=== PATIENT | male | born 1955 | race Caucasian/White ===

== ENCOUNTER → 2019-12-04 11:56 | Outpatient (BNVA) | payer MEDICARE, SELFPAY | PROVIDERS: Family Provider Nurse Practitioner; PCP Nurse Practitioner; Visit Provider Nurse Practitioner | DX: I12.9 Hypertensive chronic kidney disease with stage 1 through stage 4 chronic kidney disease, or unspecified chronic kidney disease (principal); E11.22 Type 2 diabetes mellitus with diabetic chronic kidney disease; N18.3 Chronic kidney disease, stage 3 (moderate); E55.9 Vitamin D deficiency, unspecified | CPT/HCPCS: 80053; 83036 ==

== ENCOUNTER → 2020-02-21 09:27 | Outpatient (BNVA) | payer MEDICARE, SELFPAY | PROVIDERS: Family Provider Nurse Practitioner; PCP Nurse Practitioner; Visit Provider Internal Medicine Nephrology | DX: N18.4 Chronic kidney disease, stage 4 (severe) (principal) | CPT/HCPCS: 80069; 82570; 84156; 85025 ==

== ENCOUNTER → 2020-05-16 09:12 | Outpatient (BNVA) | payer MEDICARE, OTHER, SELFPAY | PROVIDERS: Family Provider Nurse Practitioner; PCP Nurse Practitioner; Visit Provider Internal Medicine Nephrology | DX: E11.22 Type 2 diabetes mellitus with diabetic chronic kidney disease (principal); I12.9 Hypertensive chronic kidney disease with stage 1 through stage 4 chronic kidney disease, or unspecified chronic kidney disease; N18.4 Chronic kidney disease, stage 4 (severe); E55.9 Vitamin D deficiency, unspecified | CPT/HCPCS: 80053; 80069; 82044; 82310; 83036; 83970 ==

== ENCOUNTER → 2020-08-16 08:31 | Outpatient (BNVA) | payer MEDICARE, OTHER, SELFPAY | PROVIDERS: Family Provider Nurse Practitioner; PCP Nurse Practitioner; Visit Provider Internal Medicine Nephrology | DX: E11.9 Type 2 diabetes mellitus without complications (principal); I10 Essential (primary) hypertension; N18.4 Chronic kidney disease, stage 4 (severe); E55.9 Vitamin D deficiency, unspecified | CPT/HCPCS: 80069; 82043; 82306; 82310; 83036; 83970 ==

== ENCOUNTER → 2020-11-27 08:49 | Outpatient (BNVA) | payer MEDICARE, OTHER, SELFPAY | PROVIDERS: Family Provider Nurse Practitioner; PCP Nurse Practitioner; Visit Provider Internal Medicine Nephrology | DX: N18.4 Chronic kidney disease, stage 4 (severe) (principal); E11.22 Type 2 diabetes mellitus with diabetic chronic kidney disease; I10 Essential (primary) hypertension | CPT/HCPCS: 80048; 80069; 82043; 82306; 82310; 82728; 83036; 83550; 83970; 85025 ==

== ENCOUNTER → 2020-12-03 14:03 | Outpatient (BNVA) | payer MEDICARE, OTHER, SELFPAY | PROVIDERS: Family Provider Nurse Practitioner; PCP Nurse Practitioner; Visit Provider Nurse Practitioner Family | DX: S91.302A Unspecified open wound, left foot, initial encounter (principal); Z89.412 Acquired absence of left great toe | CPT/HCPCS: 73630; 87070; 87075; 87205 ==

== ENCOUNTER 2020-12-09 13:11 | Outpatient (CLI) | payer MEDICARE, OTHER, SELFPAY | END 2020-12-09 13:12 | disposition home or self-care (01) | LOC: WOUND 13:14 | PROVIDERS: Family Provider Nurse Practitioner; PCP Nurse Practitioner; Visit Provider Nurse Practitioner Family | DX: E11.621 Type 2 diabetes mellitus with foot ulcer (principal); L97.522 Non-pressure chronic ulcer of other part of left foot with fat layer exposed | CPT/HCPCS: 11042; 87070; 87075; 87205; G0463; L3260 ==

== ENCOUNTER 2020-12-16 14:11 | Outpatient (CLI) | payer MEDICARE, OTHER, SELFPAY | END 2020-12-16 14:12 | disposition home or self-care (01) | LOC: WOUND 14:12 | PROVIDERS: Family Provider Nurse Practitioner; PCP Nurse Practitioner; Visit Provider Thoracic Surgery (Cardiothoracic Vascular Surgery) | DX: Z09 Encounter for follow-up examination after completed treatment for conditions other than malignant neoplasm (principal) | CPT/HCPCS: G0463 ==

== ENCOUNTER → 2021-02-17 09:39 | Outpatient (BNVA) | payer MEDICARE, OTHER, SELFPAY | PROVIDERS: Family Provider Nurse Practitioner; PCP Nurse Practitioner; Visit Provider Nurse Practitioner | DX: E11.22 Type 2 diabetes mellitus with diabetic chronic kidney disease (principal); I10 Essential (primary) hypertension | CPT/HCPCS: 80053; 83036 ==

== ENCOUNTER → 2021-04-22 09:27 | Outpatient (BNVA) | payer MEDICARE, OTHER, SELFPAY | PROVIDERS: Family Provider Nurse Practitioner; PCP Nurse Practitioner; Visit Provider Internal Medicine Nephrology | DX: E11.22 Type 2 diabetes mellitus with diabetic chronic kidney disease (principal); N18.4 Chronic kidney disease, stage 4 (severe); E55.9 Vitamin D deficiency, unspecified | CPT/HCPCS: 80069; 82306; 82310; 83036; 83970; 85025 ==

== ENCOUNTER → 2021-06-05 09:11 | Outpatient (BNVA) | payer MEDICARE, OTHER, SELFPAY | PROVIDERS: Family Provider Nurse Practitioner; PCP Nurse Practitioner; Visit Provider Internal Medicine Nephrology | DX: E11.22 Type 2 diabetes mellitus with diabetic chronic kidney disease (principal); N18.4 Chronic kidney disease, stage 4 (severe); N18.30 Chronic kidney disease, stage 3 unspecified | CPT/HCPCS: 80061; 80069; 82043; 83036 ==

== ENCOUNTER → 2021-10-23 09:06 | Outpatient (BNVA) | payer MEDICARE, OTHER, SELFPAY | PROVIDERS: Family Provider Nurse Practitioner; PCP Nurse Practitioner; Visit Provider Internal Medicine Nephrology | DX: E11.22 Type 2 diabetes mellitus with diabetic chronic kidney disease (principal); I12.9 Hypertensive chronic kidney disease with stage 1 through stage 4 chronic kidney disease, or unspecified chronic kidney disease; N18.4 Chronic kidney disease, stage 4 (severe) | CPT/HCPCS: 80061; 80069; 82043; 83036 ==

== ENCOUNTER → 2022-02-26 09:11 | Outpatient (BNVA) | payer MEDICARE, OTHER, SELFPAY | PROVIDERS: Family Provider Nurse Practitioner; PCP Nurse Practitioner; Visit Provider Internal Medicine Nephrology | DX: E11.22 Type 2 diabetes mellitus with diabetic chronic kidney disease (principal); I10 Essential (primary) hypertension; E55.9 Vitamin D deficiency, unspecified; N18.9 Chronic kidney disease, unspecified | CPT/HCPCS: 80048; 80069; 82043; 82310; 83036; 83970; 85025 ==

== ENCOUNTER → 2022-06-03 09:44 | Outpatient (BNVA) | payer MEDICARE, OTHER, SELFPAY | PROVIDERS: Family Provider Nurse Practitioner; PCP Nurse Practitioner; Visit Provider Internal Medicine Nephrology | DX: N18.4 Chronic kidney disease, stage 4 (severe) (principal); E11.22 Type 2 diabetes mellitus with diabetic chronic kidney disease | CPT/HCPCS: 80069; 82043; 82310; 83036; 83970 ==

== ENCOUNTER → 2022-11-17 11:14 | Outpatient (BNVA) | payer MEDICARE, OTHER, SELFPAY | PROVIDERS: Family Provider Nurse Practitioner; PCP Nurse Practitioner; Visit Provider Nurse Practitioner | DX: N18.4 Chronic kidney disease, stage 4 (severe) (principal); E11.22 Type 2 diabetes mellitus with diabetic chronic kidney disease | CPT/HCPCS: 80061; 80069; 82043; 82306; 82542; 83036; 85025 ==

== ENCOUNTER → 2023-02-04 09:11 | Outpatient (BNVA) | payer MEDICARE, OTHER, SELFPAY | PROVIDERS: Family Provider Nurse Practitioner; PCP Nurse Practitioner; Visit Provider Internal Medicine Nephrology | DX: E11.22 Type 2 diabetes mellitus with diabetic chronic kidney disease (principal); N18.4 Chronic kidney disease, stage 4 (severe); E11.8 Type 2 diabetes mellitus with unspecified complications; I10 Essential (primary) hypertension | CPT/HCPCS: 80053; 80061; 80069; 83036 ==

== ENCOUNTER 2023-02-26 10:52 | Outpatient (CLI) | payer MEDICARE, OTHER, SELFPAY ==
--- NOTE | 2023-02-26 11:00 | CT_ITS ---
WS: [id number] CT chest wo con [id number] HISTORY: R91.1 - Solitary pulmonary nodule TECHNIQUE: Axial imaging performed through the thorax. Coronal and sagittal reformats are submitted. All CT scans at [facility] use at least one of these dose optimization techniques: automated exposure control; mA and/or kV adjustment per patient size (includes targeted exams where dose is mat ched to clinical indication); or iterative reconstruction. CONTRAST: None DLP: 296.08 mGy.cm COMPARISON: 11/29/2018 Lungs and central airway: Very mild pulmonary hyperinflation. There are a few scattered pulmonary nod ules. Some of the nodules described on the study from 2019 are no longer apparent. No enlarging or ne w nodules. No suspicious mass or pneumonia. Pleura: Normal. No pleural effusion. Heart and pericardium: Normal size heart with no pericardial effusion. Mediastinum and tani: No mediastinum or hilar adenopathy. Vessels: Mild atherosclerosis aorta. No aneurysm. Normal size pulmonary artery. Chest wall and lower neck: No soft tissue masses. Upper abdomen: Suprarenal abdominal aortic and splenic artery calcifications. No adrenal mass. Osseous structures: No destructive process. CT/CT chest wo con [id number] IMPRESSION: 1. No suspicious or enlarging or new pulmonary nodule. 2. No adenopathy. 3. Mild atherosclerosis aorta.
== END 2023-02-26 10:53 | disposition home or self-care (01) ==
LOC: RAD 10:59
PROVIDERS: PCP Nurse Practitioner; Visit Provider Nurse Practitioner
DX: E11.22 Type 2 diabetes mellitus with diabetic chronic kidney disease (principal); N18.4 Chronic kidney disease, stage 4 (severe); R91.1 Solitary pulmonary nodule
CPT/HCPCS: 71250

== ENCOUNTER → 2023-03-29 09:11 | Outpatient (BNVA) | payer MEDICARE, OTHER, SELFPAY | PROVIDERS: PCP Nurse Practitioner; Visit Provider Internal Medicine Nephrology | DX: E55.9 Vitamin D deficiency, unspecified (principal); I10 Essential (primary) hypertension; E11.22 Type 2 diabetes mellitus with diabetic chronic kidney disease; N18.4 Chronic kidney disease, stage 4 (severe) | CPT/HCPCS: 80069; 82306; 82310; 83970; 85025 ==

== ENCOUNTER → 2023-04-02 10:54 | Outpatient (BNVA) | payer MEDICARE, OTHER, SELFPAY | PROVIDERS: PCP Nurse Practitioner; Visit Provider Otolaryngology | DX: E11.22 Type 2 diabetes mellitus with diabetic chronic kidney disease (principal); E55.9 Vitamin D deficiency, unspecified; I10 Essential (primary) hypertension; N18.4 Chronic kidney disease, stage 4 (severe) | CPT/HCPCS: 82043 ==

== ENCOUNTER → 2023-05-10 10:35 | Outpatient (BNVA) | payer MEDICARE, OTHER, SELFPAY | PROVIDERS: PCP Nurse Practitioner; Visit Provider Registered Nurse | DX: D63.1 Anemia in chronic kidney disease (principal) | CPT/HCPCS: 85025 ==

== ENCOUNTER → 2023-06-03 10:48 | Outpatient (BNVA) | payer MEDICARE, OTHER, SELFPAY | PROVIDERS: PCP Nurse Practitioner; Visit Provider Registered Nurse | DX: E11.22 Type 2 diabetes mellitus with diabetic chronic kidney disease (principal); N18.4 Chronic kidney disease, stage 4 (severe) | CPT/HCPCS: 80048 ==

== ENCOUNTER → 2023-08-02 10:40 | Outpatient (BNVA) | payer MEDICARE, OTHER, SELFPAY | PROVIDERS: PCP Nurse Practitioner; Visit Provider Nurse Practitioner | DX: I10 Essential (primary) hypertension (principal); E11.22 Type 2 diabetes mellitus with diabetic chronic kidney disease | CPT/HCPCS: 80053; 80061; 83036; 84443 ==

== ENCOUNTER → 2023-10-18 10:24 | Outpatient (BNVA) | payer MEDICARE, OTHER, SELFPAY | PROVIDERS: PCP Nurse Practitioner; Visit Provider Registered Nurse | DX: E11.22 Type 2 diabetes mellitus with diabetic chronic kidney disease (principal); N18.4 Chronic kidney disease, stage 4 (severe) | CPT/HCPCS: 80069; 82043; 82310; 83970; 85025 ==

== ENCOUNTER → 2024-03-15 09:39 | Outpatient (BNVA) | payer MEDICARE, OTHER, SELFPAY | PROVIDERS: PCP Nurse Practitioner; Visit Provider Internal Medicine Nephrology | DX: E11.22 Type 2 diabetes mellitus with diabetic chronic kidney disease (principal); D50.9 Iron deficiency anemia, unspecified; N18.4 Chronic kidney disease, stage 4 (severe) | CPT/HCPCS: 80053; 80061; 80069; 82306; 82728; 83550; 85025 ==

== ENCOUNTER → 2024-04-24 10:25 | Outpatient (BNVA) | payer MEDICARE, OTHER, SELFPAY | PROVIDERS: PCP Nurse Practitioner; Visit Provider Nurse Practitioner | DX: M79.672 Pain in left foot (principal); L03.90 Cellulitis, unspecified | CPT/HCPCS: 73630; 80048; 85025 ==

== ENCOUNTER → 2024-05-01 10:40 | Outpatient (BNVA) | payer MEDICARE, OTHER, SELFPAY | PROVIDERS: PCP Nurse Practitioner; Visit Provider Nurse Practitioner | DX: L03.90 Cellulitis, unspecified (principal); E11.8 Type 2 diabetes mellitus with unspecified complications; E11.22 Type 2 diabetes mellitus with diabetic chronic kidney disease; N18.4 Chronic kidney disease, stage 4 (severe) | CPT/HCPCS: 80048; 84550; 85025 ==

== ENCOUNTER → 2024-05-02 10:44 | Outpatient (CLI) | payer MEDICARE, OTHER, SELFPAY ==
--- NOTE | 2024-05-02 11:15 | USCV_ITS ---
Tee Carmen Age: 69 Gender: M : 1955 Exam Date: 05/02/2024 10:49 Ordering Phys: Sally Davis Technologist: USR Exam Location: [facility] [place] Indication: Risk Factors: Previous Vascular Surgery: RIGHT LEFT Waveform Velocity (cm/s) Velocity (cm/s) Waveform Iliac Prox 99.0 Triphasic Iliac Mid Triphasic 105.9 Iliac Distal 96.1 Triphasic MEDICAL LAB TECH INSTRUCTOR 124.0 Triphasic SFA Prox 107.0 Biphasic SFA Mid 141.0 Biphasic SFA Dist 127.0 Biphasic POP Triphasic 127.0 STARCHER AND TENTER RANGE FEEDER 143.0 Biphasic DPA 81.0 Biphasic LANIE 0.0 FINDINGS DP and PT non compressible Intimal thickening and minimal plaques in the femoral and iliac artery on the left side Normal/near normal Doppler flow velocities CONCLUSIONS 1. Mild diffuse plaque in the common femoral, femoral and popliteal arteries on the left side 2. Noncompressible ankle vessels suggestive of extensive arterial sclerosis with possibly no significant obstruction Dr Brianda Reyes MD FACC (Electronically Signed) Final Date: 02 May 2024 20:17 S
== END | disposition home or self-care (01) ==
LOC: RAD 10:43
PROVIDERS: PCP Nurse Practitioner; Visit Provider Nurse Practitioner
DX: E11.8 Type 2 diabetes mellitus with unspecified complications (principal); L03.90 Cellulitis, unspecified; Z89.412 Acquired absence of left great toe; E11.22 Type 2 diabetes mellitus with diabetic chronic kidney disease; N18.4 Chronic kidney disease, stage 4 (severe); I73.9 Peripheral vascular disease, unspecified
CPT/HCPCS: 93926

== ENCOUNTER → 2024-05-04 09:47 | Outpatient (BNVA) | payer MEDICARE, OTHER, SELFPAY | PROVIDERS: PCP Nurse Practitioner; Visit Provider Podiatrist Foot & Ankle Surgery | DX: I73.9 Peripheral vascular disease, unspecified; E11.621 Type 2 diabetes mellitus with foot ulcer; L97.522 Non-pressure chronic ulcer of other part of left foot with fat layer exposed; L03.90 Cellulitis, unspecified; E11.22 Type 2 diabetes mellitus with diabetic chronic kidney disease; N18.4 Chronic kidney disease, stage 4 (severe); Z89.412 Acquired absence of left great toe | CPT/HCPCS: 73630; 99203 ==

== ENCOUNTER → 2024-05-11 08:35 | Outpatient (BNVA) | payer MEDICARE, OTHER, SELFPAY | PROVIDERS: PCP Nurse Practitioner; Visit Provider Podiatrist Foot & Ankle Surgery | DX: Z51.89 Encounter for other specified aftercare (principal); L03.90 Cellulitis, unspecified; E11.22 Type 2 diabetes mellitus with diabetic chronic kidney disease; N18.4 Chronic kidney disease, stage 4 (severe); Z89.412 Acquired absence of left great toe; I73.9 Peripheral vascular disease, unspecified; E11.621 Type 2 diabetes mellitus with foot ulcer; L97.522 Non-pressure chronic ulcer of other part of left foot with fat layer exposed | CPT/HCPCS: 99213 ==

== ENCOUNTER → 2024-05-26 13:45 | Outpatient (BNVA) | payer MEDICARE, OTHER, SELFPAY | PROVIDERS: PCP Nurse Practitioner; Visit Provider Podiatrist Foot & Ankle Surgery | DX: Z51.89 Encounter for other specified aftercare (principal); L03.90 Cellulitis, unspecified; E11.22 Type 2 diabetes mellitus with diabetic chronic kidney disease; N18.4 Chronic kidney disease, stage 4 (severe); Z89.412 Acquired absence of left great toe; I73.9 Peripheral vascular disease, unspecified; L97.522 Non-pressure chronic ulcer of other part of left foot with fat layer exposed; E11.621 Type 2 diabetes mellitus with foot ulcer | CPT/HCPCS: 99213 ==

== ENCOUNTER → 2024-06-05 13:51 | Outpatient (BNVA) | payer MEDICARE, OTHER, SELFPAY | PROVIDERS: PCP Nurse Practitioner; Visit Provider Podiatrist Foot & Ankle Surgery | DX: Z51.89 Encounter for other specified aftercare (principal); E11.22 Type 2 diabetes mellitus with diabetic chronic kidney disease; N18.4 Chronic kidney disease, stage 4 (severe); Z89.412 Acquired absence of left great toe; I73.9 Peripheral vascular disease, unspecified; L97.522 Non-pressure chronic ulcer of other part of left foot with fat layer exposed; E11.621 Type 2 diabetes mellitus with foot ulcer | CPT/HCPCS: 99213 ==

== ENCOUNTER → 2024-06-06 08:57 | Outpatient (BNVA) | payer MEDICARE, OTHER, SELFPAY | PROVIDERS: PCP Nurse Practitioner; Visit Provider Nurse Practitioner | DX: N18.4 Chronic kidney disease, stage 4 (severe) (principal); D50.9 Iron deficiency anemia, unspecified; E55.9 Vitamin D deficiency, unspecified; E11.22 Type 2 diabetes mellitus with diabetic chronic kidney disease | CPT/HCPCS: 80053; 82306; 82728; 83550; 85025 ==

== ENCOUNTER → 2024-06-15 10:32 | Outpatient (BNVA) | payer MEDICARE, OTHER, SELFPAY | PROVIDERS: PCP Nurse Practitioner; Visit Provider Podiatrist Foot & Ankle Surgery | DX: L97.522 Non-pressure chronic ulcer of other part of left foot with fat layer exposed (principal); Z51.89 Encounter for other specified aftercare; E11.22 Type 2 diabetes mellitus with diabetic chronic kidney disease; N18.4 Chronic kidney disease, stage 4 (severe); Z89.412 Acquired absence of left great toe; I73.9 Peripheral vascular disease, unspecified; E11.621 Type 2 diabetes mellitus with foot ulcer | CPT/HCPCS: 99213 ==

== ENCOUNTER → 2024-06-20 12:46 | Outpatient (BNVA) | payer MEDICARE, OTHER, SELFPAY | PROVIDERS: PCP Nurse Practitioner; Visit Provider Thoracic Surgery (Cardiothoracic Vascular Surgery) | DX: E11.52 Type 2 diabetes mellitus with diabetic peripheral angiopathy with gangrene (principal); E11.621 Type 2 diabetes mellitus with foot ulcer; L97.421 Non-pressure chronic ulcer of left heel and midfoot limited to breakdown of skin; L97.521 Non-pressure chronic ulcer of other part of left foot limited to breakdown of skin | CPT/HCPCS: 97597; 99213 ==

== ENCOUNTER → 2024-06-26 14:53 | Outpatient (BNVA) | payer MEDICARE, OTHER, SELFPAY | PROVIDERS: PCP Nurse Practitioner; Visit Provider Thoracic Surgery (Cardiothoracic Vascular Surgery) | DX: E11.52 Type 2 diabetes mellitus with diabetic peripheral angiopathy with gangrene (principal); E11.621 Type 2 diabetes mellitus with foot ulcer; L97.421 Non-pressure chronic ulcer of left heel and midfoot limited to breakdown of skin; L97.521 Non-pressure chronic ulcer of other part of left foot limited to breakdown of skin | CPT/HCPCS: 97597 ==

== ENCOUNTER → 2024-07-03 13:28 | Outpatient (BNVA) | payer MEDICARE, OTHER, SELFPAY | PROVIDERS: PCP Nurse Practitioner; Visit Provider Thoracic Surgery (Cardiothoracic Vascular Surgery) | DX: E11.52 Type 2 diabetes mellitus with diabetic peripheral angiopathy with gangrene (principal); E11.621 Type 2 diabetes mellitus with foot ulcer; L97.521 Non-pressure chronic ulcer of other part of left foot limited to breakdown of skin; L97.421 Non-pressure chronic ulcer of left heel and midfoot limited to breakdown of skin | CPT/HCPCS: 97597 ==

== ENCOUNTER → 2024-07-05 12:54 | Outpatient (BNVA) | payer MEDICARE, OTHER, SELFPAY | PROVIDERS: PCP Nurse Practitioner; Visit Provider Thoracic Surgery (Cardiothoracic Vascular Surgery) | DX: E11.52 Type 2 diabetes mellitus with diabetic peripheral angiopathy with gangrene (principal); E11.621 Type 2 diabetes mellitus with foot ulcer; L97.421 Non-pressure chronic ulcer of left heel and midfoot limited to breakdown of skin; L97.521 Non-pressure chronic ulcer of other part of left foot limited to breakdown of skin | CPT/HCPCS: 99212 ==

== ENCOUNTER → 2024-07-10 11:51 | Outpatient (BNVA) | payer MEDICARE, OTHER, SELFPAY | PROVIDERS: PCP Nurse Practitioner; Visit Provider Nurse Practitioner | DX: L03.119 Cellulitis of unspecified part of limb (principal); M20.42 Other hammer toe(s) (acquired), left foot | CPT/HCPCS: 73630 ==

== ENCOUNTER → 2024-07-12 09:41 | Outpatient (BNVA) | payer MEDICARE, OTHER, SELFPAY | PROVIDERS: PCP Nurse Practitioner; Visit Provider Thoracic Surgery (Cardiothoracic Vascular Surgery) | DX: E11.621 Type 2 diabetes mellitus with foot ulcer (principal); E11.52 Type 2 diabetes mellitus with diabetic peripheral angiopathy with gangrene; L97.426 Non-pressure chronic ulcer of left heel and midfoot with bone involvement without evidence of necrosis | CPT/HCPCS: 11042; 87070; 87176; 87205 ==

== ENCOUNTER 2024-07-19 08:34 | Outpatient (CLI) | payer MEDICARE, OTHER, SELFPAY ==
--- NOTE | 2024-07-19 09:00 | NM_ITS ---
WS: [id number] THREE-PHASE BONE SCAN HISTORY: Non healing ulcer ,R/O osteo COMPARISON: Foot radiograph 07/10/2024 Patient is is injected with 26.5 mCi Tc99m HDP intravenously. Immediate angiographic phase imaging is performed over the area of concern. Static blood pool imaging also performed. Two-hour whole-body sc intigrams performed in anterior and posterior projections. Additional large field of view imaging sub mitted as necessary. Three-phase bone scan is positive involving the LEFT second metatarsal and probably the proximal seco nd toe. There does appear to be extension through the second metatarsal phalangeal joint. Likely the entire second metatarsal is involved. There are very subtle early changes possibly extending into the third metatarsal head. Mild degenerative changes of the ankles and knees. No spine abnormality. Normal soft tissue uptake an d renal uptake. NM/NM bone 3 phase [id number] IMPRESSION: 1. Three-phase bone scan is positive consistent with cellulitis and osteomyeli tis involving the LEFT second metatarsal and proximal second phalanx. 2. Possible very early subtle changes extending into the third metatarsal head .
== END 2024-07-19 08:35 | disposition home or self-care (01) ==
PROVIDERS: PCP Nurse Practitioner; Visit Provider Thoracic Surgery (Cardiothoracic Vascular Surgery)
DX: L03.116 Cellulitis of left lower limb; M86.172 Other acute osteomyelitis, left ankle and foot; E11.52 Type 2 diabetes mellitus with diabetic peripheral angiopathy with gangrene; E11.621 Type 2 diabetes mellitus with foot ulcer; L97.424 Non-pressure chronic ulcer of left heel and midfoot with necrosis of bone
CPT/HCPCS: 78315; 97597; A9561

== ENCOUNTER → 2024-07-26 10:55 | Outpatient (BNVA) | payer MEDICARE, OTHER, SELFPAY | PROVIDERS: PCP Nurse Practitioner; Visit Provider Thoracic Surgery (Cardiothoracic Vascular Surgery) | DX: E11.52 Type 2 diabetes mellitus with diabetic peripheral angiopathy with gangrene (principal); E11.621 Type 2 diabetes mellitus with foot ulcer; L97.421 Non-pressure chronic ulcer of left heel and midfoot limited to breakdown of skin | CPT/HCPCS: 97597 ==

== ENCOUNTER → 2024-07-27 11:05 | Outpatient (BNVA) | payer MEDICARE, OTHER, SELFPAY | PROVIDERS: PCP Nurse Practitioner; Visit Provider Podiatrist Foot & Ankle Surgery | DX: E11.22 Type 2 diabetes mellitus with diabetic chronic kidney disease (principal); N18.4 Chronic kidney disease, stage 4 (severe); Z89.412 Acquired absence of left great toe; I73.9 Peripheral vascular disease, unspecified; L97.522 Non-pressure chronic ulcer of other part of left foot with fat layer exposed; M86.9 Osteomyelitis, unspecified; E11.621 Type 2 diabetes mellitus with foot ulcer; M86.8X7 Other osteomyelitis, ankle and foot | CPT/HCPCS: 99214 ==

== ENCOUNTER → 2024-08-02 10:35 | Outpatient (BNVA) | payer MEDICARE, OTHER, SELFPAY | PROVIDERS: PCP Nurse Practitioner; Visit Provider Thoracic Surgery (Cardiothoracic Vascular Surgery) | DX: E11.52 Type 2 diabetes mellitus with diabetic peripheral angiopathy with gangrene (principal); E11.621 Type 2 diabetes mellitus with foot ulcer; L97.424 Non-pressure chronic ulcer of left heel and midfoot with necrosis of bone | CPT/HCPCS: 97597 ==

== ENCOUNTER 2024-08-07 12:33 | Outpatient (CLI) | payer MEDICARE, OTHER, SELFPAY ==
--- NOTE | 2024-08-07 12:58 | XRR_ITS ---
PROCEDURE INFORMATION: Exam: XR Chest Exam date and time: 08/07/2024 1:06 PM Age: 69 years old Clinical indication: Pre-operative exam; Cardiovascular screening and respiratory screening exam; Additional info: I10 - essential (primary) hypertension TECHNIQUE: Imaging protocol: Radiologic exam of the chest. Views: 2 views. COMPARISON: CT chest wo con [id number] 02/26/2023 11:05 AM FINDINGS: Airway: Airways are patent. Lungs: Lungs are clear. Calcified granulomas throughout the lungs are benign. Pleural spaces: No pleural effusions or pneumothorax. Heart/Mediastinum: No cardiomegaly. Vasculature: Calcified aortic knob. Bones/joints: Moderate multilevel degenerative changes of the spine. No acutely displaced fractures. Soft tissues: No acute soft tissue findings. XR/XR chest 2V* [id number] IMPRESSION: No acute thoracic pathology.
[2024-08-07 13:01] LABS: Basophils # 0.1 10^3/uL (0.0-0.1); Basophils % 1.1 %; Eosinophils # 0.3 10^3/uL (0.0-0.8); Eosinophils % 4.1 %; Hematocrit 30.8 % (37-53); Lymphocytes # 1.3 10^3/uL (0.8-4.8); Lymphocytes % 19.2 %; Mean Corpuscular HGB Conc 32.1 g/dL (30-55); Mean Corpuscular Hemoglobin 29.8 pg (27-33); Mean Corpuscular Volume 92.8 fl (82-101); Mean Platelet Volume 9.9 fL (7.4-10.4); Monocytes # 0.6 10^3/uL (0.2-0.9); Monocytes % 8.8 %; Neutrophils # 4.38 10^3/uL (1.8-7.7); Neutrophils % 66.3 %; Nucleated Red Blood Cells % 0 %; Platelet Count 232 10^3/cmm (157-399); Red Blood Count 3.32 10^6/uL (3.85-5.65); Red Cell Distribution Width 14.4 % (12.1-15.1)
[2024-08-07 13:19] LABS: Anion Gap 18.4 (5-19); Blood Urea Nitrogen 78 mg/dL (8-23); Calcium 9.5 mg/dL (8.5-10.5); Carbon Dioxide 22 mmol/L (22-29); Chloride 98 mmol/L (98-107); Glucose 235 mg/dL (65-115); Osmolality Calculated 309 mOsm/kg (285-295); Potassium 4.4 mmol/L (3.5-5.1); Sodium 134 mmol/L (136-145)
--- NOTE | 2024-08-07 14:49 | ECG_ITS ---
[facility] Test Date: 2024-08-07 Pat Name: Carmen Oliveira Department: Room: Gender: Male Butcher Assistant: : 1955 Requested By: Sally Hollins Order Number: [id number] Shivam MD: Brianda Reyes M.D. Measurements Intervals Emerson Rate: 70 P: 209 ND: 247 QRS: 72 QRSD: 117 T: -6 QT: 384 QTc: 415 Interpretive Statements SINUS RHYTHM WITH FIRST DEGREE AV BLOCK Compared to ECG 12/23/2015 15:30:56 First degree AV block now present Electronically Signed On 08-07-2024 23:34:22 CDT by Brianda Reyes M.D. [email or web address]
== END 2024-08-07 12:34 | disposition home or self-care (01) ==
LOC: LAB 12:33
PROVIDERS: PCP Nurse Practitioner; Visit Provider Nurse Practitioner
DX: I10 Essential (primary) hypertension (principal); I73.9 Peripheral vascular disease, unspecified; M86.9 Osteomyelitis, unspecified; Z01.818 Encounter for other preprocedural examination; J84.10 Pulmonary fibrosis, unspecified
CPT/HCPCS: 36415; 71046; 80048; 85025; 93005

== ENCOUNTER 2024-08-16 05:48 | Day surgery (SDC) | payer MEDICARE, OTHER, SELFPAY ==
[2024-08-16 06:03] VITALS: BP 162/74; PULSE 61; RESP 18; TEMP 36.4; O2SAT 98; BMI 23.5
--- NOTE | 2024-08-16 06:11 | ANES.PREANE2 ---
Pre-Anesthetic Assessment Height/Weight: Height 6 ft 1 in Weight 178 lb Temp Pulse Resp BP Pulse Ox O2 Del Method 97.6 F 61 18 162/74 98 Room Air 08/16/24 06:03 08/16/24 06:03 08/16/24 06:03 08/16/24 06:03 08/16/24 06:03 08/16/24 06:03 Preop Diagnosis: Osteomyelitis Operation Date: 08/16/24 07:00 Proposed Procedures p Left foot 2nd metatarsal head resection(Left) - Jony Guzmán DPM Was Beta Tresa taken within 24 hours: Yes Was Clonidine taken within 24 hours: N/A Last intake: Intake Last Liquid Date 08/15/24 Last Liquid Time 18:00 Last Solid Date 08/15/24 Last Solid Time 18:00 Social No alcohol and No tobacco Exam alert, oriented x 3, clear to auscultation bilaterally and regular rate & rhythm Airway Submandibular: within normal limits Cervical ROM: within normal limits Mallampati: Class III Comments: Comments: poor dentition. Multiple missing teeth. Patient denies any loose teeth Anesthetic Plan ASA status: 3 Anesthesia: MAC Other: No prior issues with anesthesia NPO since midnight History of hypertension on amlodipine, hydralazine, metoprolol?XL, torsemide CKD stage IV Labs reviewed 08/07/2024. Sodium 134, potassium 4.4 EKG showing sinus rhythm with first-degree AV block Plan for MAC anesthetic with local via surgeon Medications/Allergies Home Medications Medication Instructions Recorded Confirmed Last Taken Type aspirin 81 mg tablet,delayed 81 mg PO QDAY 12/01/19 08/16/24 08/15/24 History release (Adult Low Dose Aspirin) blood sugar diagnostic #10 ea 12/04/19 08/03/24 Unknown History cholecalciferol (vitamin D3) 125 5,000 unit PO QDAY #30 caps 08/19/20 08/16/24 08/15/24 Rx mcg (5,000 unit) capsule hydralazine 25 mg tablet 25 mg PO TID #1 tab 11/05/21 08/16/24 08/15/24 Rx torsemide 20 mg tablet 20 mg PO DAILY #1 tab 11/05/21 08/16/24 08/15/24 Rx spironolactone 25 mg tablet 25 mg PO BID 02/08/23 08/16/24 08/15/24 History Diabetic shoes with custom inserts #1 ea 10/05/23 08/03/24 Unknown Rx amlodipine 10 mg tablet 10 mg PO QDAY #90 tabs 07/10/24 08/16/24 08/15/24 Rx blood sugar diagnostic #50 ea 07/10/24 08/03/24 Unknown Rx lancets 33 gauge #100 ea 07/10/24 08/03/24 Unknown Rx lovastatin 20 mg tablet 20 mg PO .HS #90 tabs 07/10/24 08/16/24 08/15/24 Rx metoprolol succinate 100 mg 100 mg PO QDAY #90 tabs 07/10/24 08/16/24 08/15/24 Rx tablet,extended release 24 hr levofloxacin 500 mg tablet 250 mg (1/2 x 500 mg) PO DAILY 14 07/19/24 08/16/24 08/15/24 Rx days #14 tabs Allergies Allergy/AdvReac Type Severity Reaction Status Date / Time allopurinol Allergy Severe ALGY-Rash Verified 08/16/24 05:59 codeine AdvReac ADR-Nausea Verified 08/16/24 05:59 sertraline [From Zoloft] AdvReac ADR-Vomitin Verified 08/16/24 05:59 g PFSH Anesthesia Medical History Lung nodule 3-4mm size 2018 DM type 2 causing CKD stage 4 Vitamin D deficiency Drug induced constipation Benign prostatic hyperplasia without lower urinary tract symptoms Essential (primary) hypertension Anxiety disorder Surgical History History of amputation of left great toe December 2015 History of colonoscopy Family History Other Cancer Diabetes Social History Smoking and tobacco/nicotine status: former use of tobacco/nicotine Second hand smoke exposure: No Alcohol intake: never Substance/Drug Use: never Caregiver/support person: No Lives independently: Yes Household members: spouse Housing: House Marital status: service: No Current occupational status: disabled Pets and animals: Yes Leisure activites: exercise Do you think of yourself as: Straight/Heterosexual Current gender identity: Male Data Anesthesia Cardiac Studies: No Data to Display
[2024-08-16] MEDS: sodium chloride 0.9% 1,000 ML 30 ML IV (06:25)
[2024-08-16] MEDS: gabapentin 300 mg Capsule PO (06:25)
[2024-08-16] MEDS: acetaminophen 1,000 MG/100 ML PIGGYBACK 400 MG IV (06:25)
[2024-08-16 06:29] LABS: Glucose Point of Care 103 mg/dL (70-110)
--- NOTE | 2024-08-16 06:52 | P.HPUD_ITS ---
Surgery/Procedure H&P Update DATE OF PROCEDURE: August 16, 2024 DATE H&P PERFORMED: 07/27/24 H&P UPDATE INFORMATION: I have reviewed H&P completed within last 30 days, I have examined patient prior to procedure, No changes to prior documentation and H&P is in [facility] [place] on date indicated PREOP DIAGNOSIS: Osteomyelitis PLANNED PROCEDURE: Operation Date: 08/16/24 07:00 Proposed Procedures p Left foot 2nd metatarsal head resection(Left) - Jony Guzmán DPM
[2024-08-16] MEDS: ceFAZolin 2,000 mg SDV 2000 MG IVP (06:59)
[2024-08-16] MEDS: BUPivacaine 0.5% INJ 30 mL XX (07:21)
[2024-08-16 07:40] VITALS: BP 98/59; PULSE 56; RESP 10; TEMP 37; O2SAT 98
--- NOTE | 2024-08-16 07:43 | W.PM.BPON ---
Date of procedure: 08/16/2024 Surgeon name: Dr. Jony Guzmán D.P.M. Plasterer Apprentice(s) name(s): Mann Procedure(s) performed: Left foot second metatarsal head resection Description of findings: Osteomyelitis of second metatarsal head left foot Estimated blood loss: 5 cc Tourniquet time: 14 minutes Specimen(s) removed: Second metatarsal head left foot Post-operative diagnosis: Osteomyelitis left foot second metatarsal head
[2024-08-16 07:45] VITALS: BP 104/68; PULSE 58; RESP 16; O2SAT 99
[2024-08-16 07:50] VITALS: BP 124/57; PULSE 58; RESP 16; O2SAT 100
[2024-08-16 07:55] VITALS: BP 108/69; PULSE 53; RESP 16; TEMP 36.4; O2SAT 99
[2024-08-16 08:01] VITALS: BP 108/41; PULSE 56; RESP 17; TEMP 36.1; O2SAT 99
--- NOTE | 2024-08-16 08:50 | ANE.PACU2 ---
Inpatient post-anesthesia follow up: Airway intact: Yes Vital signs: Temperature 97.0 F Pulse Rate 56 Respiratory Rate 17 Blood Pressure 108/41 Pulse Oximetry 99 Oxygen Delivery Me thod Room Air Oxygen Flow Rate 6 Fraction of Inspir ed Oxygen Hydration adequate: Yes Nausea and vomiting: No Pain level: 1 Mental status: Baseline
--- NOTE | 2024-08-16 21:00 | P.OP_ITS ---
Operative Report Date of procedure: August 16, 2024 Surgeon: Jony Guzmán DPM Brief History: Date of procedure: 08/16/2024 Pre-op diagnosis: Left foot second metatarsal head osteomyelitis Post-op diagnosis: Same Post-op findings: Degenerative changes of second metatarsal head left foot Procedure done: Left foot second metatarsal head resection CPT 96038 Implants: None Specimens removed: Second metatarsal head left foot Surgeon: Dr. Jony Guzmán DPM Efficiency Manager: Mnan Estimated blood loss: 5 cc Tourniquet time: 14 minutes Complications: None Patient is a 69-year-old male that has a history of chronic ulceration with osteomyelitis of underlying second metatarsal head with positive culture. The patient has had the aforementioned chief complaint for some time. Conservative treatment measures have been attempted and the patient has opted for surgical intervention at this time. A lengthy discussion regarding the procedure, including risks and complications has been had with the patient and is noted in the recent clinic note. Written and verbal consent have been obtained. All patient questions have been answered to the patient?s satisfaction. No written or verbal guarantees have been given or implied. The patient has been NPO since midnight. The history has been reviewed and the history and physical is current. The signed consent was confirmed and placed in the patient chart. Patient imaging has been reviewed and is consistent with the diagnosis. Under mild sedation, the patient was brought into the operating room and placed on the table in the supine position. IV antibiotics were given by the anesthesia team as preoperative surgical prophylaxis. IV sedation was then performed by the anesthesiateam. A pneumatic tourniquet was then placed about the left ankle. The operative extremity was then prepped and draped in the usual fashion. The extremity was then elevated and exsanguinated before the tourniquet was inflated to 250 mmHg. After inflation, the following procedure was then performed. Attention was directed to the left foot where a 5 cm incision was made overlying the second metatarsophalangeal joint using a #15 blade. Dissection was carried down through subcutaneous superficial fascia via blunt dissection down to the level of the second tarsal phalangeal joint capsule. This was then incised with a #15 blade to expose the head of the second metatarsal. There was noted to be degenerative changes of the segmented tarsal head and discoloration, likely consistent with osteomyelitis. A sagittal bone saw was then used to resect the second metatarsal at the level of the surgical neck. The capital fragment was then removed using a McGlamry elevator. It was passed from the operative field of sinus specimen. The remaining bony tissue appeared healthy and viable with no signs of infection. The site was irrigated with copious amounts sterile saline before attention was directed to closure. Skin was closed with 3-0 nylon in horizontal mattress fashion. The tourniquet was let down and good hyperemic response was noted to all digits of the left foot. Hemostasis was noted to be achieved. Incision site was dressed with Xeroform, 4 x 4 gauze, Kerlix, Bryce. Patient was placed in a surgical shoe. The patient tolerated the procedure and anesthesia well and without complication. The patient was transported from the operating room to the recovery room with vital signs stable and vascular status intact to all digits of the left foot. The patient was given both written and verbal instructions to remain weightbearing as tolerated to the operative extremity, to keep dressings /splint clean, dry and intact and to take pain medication as directed. The patient will follow-up in the outpatient setting at their scheduled appointment. The patient was discharged with my personal number and was instructed to call if any questions or issues should arise. They were discharged home once anesthesia criteria was met.
== END 2024-08-16 08:50 | disposition home or self-care (01) ==
PROVIDERS: PCP Nurse Practitioner; Visit Provider Podiatrist Foot & Ankle Surgery
PROC: (CPT 28112; principal; 2024-08-16 07:00)
DX: M86.8X7 Other osteomyelitis, ankle and foot (principal); E11.22 Type 2 diabetes mellitus with diabetic chronic kidney disease; I12.9 Hypertensive chronic kidney disease with stage 1 through stage 4 chronic kidney disease, or unspecified chronic kidney disease; N18.4 Chronic kidney disease, stage 4 (severe); Z79.82 Long term (current) use of aspirin; N40.0 Benign prostatic hyperplasia without lower urinary tract symptoms; Z87.891 Personal history of nicotine dependence
CPT/HCPCS: 28112; 36416; 82962; 87070; 87075; 87205; 88305; 88311; J0131; J0690; J2704; J3490; J7030

== ENCOUNTER → 2024-08-23 14:14 | Outpatient (BNVA) | payer MEDICARE, OTHER, SELFPAY | PROVIDERS: PCP Nurse Practitioner; Visit Provider Podiatrist Foot & Ankle Surgery | DX: Z98.890 Other specified postprocedural states (principal); E11.22 Type 2 diabetes mellitus with diabetic chronic kidney disease; N18.4 Chronic kidney disease, stage 4 (severe); Z89.412 Acquired absence of left great toe; I73.9 Peripheral vascular disease, unspecified; E11.621 Type 2 diabetes mellitus with foot ulcer; L97.522 Non-pressure chronic ulcer of other part of left foot with fat layer exposed; M86.672 Other chronic osteomyelitis, left ankle and foot | CPT/HCPCS: 73630; 99024 ==

== ENCOUNTER → 2024-08-30 13:47 | Outpatient (BNVA) | payer MEDICARE, OTHER, SELFPAY | PROVIDERS: PCP Nurse Practitioner; Visit Provider Podiatrist Foot & Ankle Surgery | DX: E11.22 Type 2 diabetes mellitus with diabetic chronic kidney disease (principal); N18.4 Chronic kidney disease, stage 4 (severe); Z89.412 Acquired absence of left great toe; I73.9 Peripheral vascular disease, unspecified; L97.522 Non-pressure chronic ulcer of other part of left foot with fat layer exposed; E11.621 Type 2 diabetes mellitus with foot ulcer; M86.672 Other chronic osteomyelitis, left ankle and foot | CPT/HCPCS: 99024 ==

== ENCOUNTER → 2024-09-06 13:23 | Outpatient (BNVA) | payer MEDICARE, OTHER, SELFPAY | PROVIDERS: PCP Nurse Practitioner; Visit Provider Podiatrist Foot & Ankle Surgery | DX: Z98.890 Other specified postprocedural states (principal) | CPT/HCPCS: 99024 ==

== ENCOUNTER → 2024-11-02 12:52 | Outpatient (BNVA) | payer MEDICARE, OTHER, SELFPAY | PROVIDERS: PCP Nurse Practitioner; Visit Provider Podiatrist Foot & Ankle Surgery | DX: Z98.890 Other specified postprocedural states (principal) | CPT/HCPCS: 99213 ==

== ENCOUNTER → 2024-12-12 09:42 | Outpatient (BNVA) | payer MEDICARE, OTHER, SELFPAY | PROVIDERS: PCP Nurse Practitioner; Visit Provider Registered Nurse | DX: I10 Essential (primary) hypertension (principal); E11.22 Type 2 diabetes mellitus with diabetic chronic kidney disease; N18.4 Chronic kidney disease, stage 4 (severe); E55.9 Vitamin D deficiency, unspecified; N18.9 Chronic kidney disease, unspecified | CPT/HCPCS: 80061; 80069; 82043; 82306; 82310; 83036; 83970; 85025 ==

== ENCOUNTER → 2025-04-17 13:42 | Outpatient (BNVA) | payer MEDICARE, OTHER, SELFPAY | PROVIDERS: PCP Nurse Practitioner; Visit Provider Podiatrist Foot & Ankle Surgery | DX: L84 Corns and callosities (principal); Z98.890 Other specified postprocedural states | CPT/HCPCS: 99213 ==

== ENCOUNTER → 2025-05-03 12:42 | Outpatient (BNVA) | payer MEDICARE, OTHER, SELFPAY | PROVIDERS: PCP Nurse Practitioner; Visit Provider Podiatrist Foot & Ankle Surgery | DX: I73.9 Peripheral vascular disease, unspecified (principal); L60.3 Nail dystrophy; L84 Corns and callosities; Z89.412 Acquired absence of left great toe | CPT/HCPCS: 11055; 11721 ==

== ENCOUNTER → 2025-06-13 08:20 | Outpatient (BNVA) | payer MEDICARE, OTHER, SELFPAY | PROVIDERS: PCP Nurse Practitioner; Visit Provider Nurse Practitioner | DX: E55.9 Vitamin D deficiency, unspecified (principal); E11.22 Type 2 diabetes mellitus with diabetic chronic kidney disease; N18.4 Chronic kidney disease, stage 4 (severe) | CPT/HCPCS: 80069; 82043; 82306; 82310; 83970; 85025 ==

== ENCOUNTER → 2025-07-12 10:50 | Outpatient (BNVA) | payer MEDICARE, OTHER, SELFPAY | PROVIDERS: PCP Nurse Practitioner; Visit Provider Podiatrist Foot & Ankle Surgery | DX: I73.9 Peripheral vascular disease, unspecified (principal); L60.3 Nail dystrophy; L84 Corns and callosities | CPT/HCPCS: 11721 ==

== ENCOUNTER → 2025-09-19 13:59 | Outpatient (BNVA) | payer MEDICARE, OTHER, SELFPAY | PROVIDERS: PCP Nurse Practitioner; Visit Provider Podiatrist Foot & Ankle Surgery | DX: E11.8 Type 2 diabetes mellitus with unspecified complications (principal); L60.3 Nail dystrophy; L84 Corns and callosities; I73.9 Peripheral vascular disease, unspecified | CPT/HCPCS: 11721 ==